=== PATIENT | female | born 1960 | race Caucasian/White ===

== ENCOUNTER → 2018-10-17 08:39 | Outpatient (CLI) | payer OTHER, SELFPAY ==
--- NOTE | 2018-10-17 08:51 | NVE_ITS ---
Venous Exam Indications: 729.81 Swelling of limb. IMPRESSIONS 1. There is no evidence of significant Reflux. 2. No evidence of deep or superficial vein thrombosis involving the right lower extremity Right lower extremity venous duplex evaluation. Doppler flow study including spectral analysis, color and ho scale imaging. Location: Vascular laboratory. Patient status: Outpatient. Tables: Venous flow and imaging: + +-------+ + Location Overall Flow properties + +-------+ + Right common femoral Patent Normal phasicity; spontaneous; normal augmentation; compressible + +-------+ + Right saphenofemoral junction Patent Compressible + +-------+ + Right profunda femoral Patent Compressible + +-------+ + Right femoral Patent Normal phasicity; spontaneous; normal augmentation; compressible + +-------+ + Right greater saphenous Patent Normal phasicity; spontaneous; normal augmentation; compressible + +-------+ + Right popliteal Patent Normal phasicity; spontaneous; normal augmentation; compressible + +-------+ + Right posterior tibial Patent Compressible + +-------+ + Right peroneal Patent Compressible + +-------+ + Right gastrocnemius Patent Compressible + +-------+ + Right soleal Patent Compressible + +-------+ + (Report amended ) Electronically signed by: Kristopher Taveras [id number]
== END ==
PROVIDERS: PCP Family Medicine; Visit Provider Family Medicine
DX: R60.0 Localized edema (principal); M79.605 Pain in left leg
CPT/HCPCS: 93971

== ENCOUNTER → 2019-08-07 16:56 | Outpatient (CLI) | payer OTHER, SELFPAY ==
--- NOTE | 2019-08-07 17:00 | MM_ITS ---
PROCEDURE: MM DIG SCREENING MAMM BI W/CAD CLINICAL INDICATION: SCREENING There is a history of breast cancer patient's maternal aunt. COMPARISON: DIGMAMMS MAMMOGRAM SCREEN-CONCRETE BUCKET HOOKER N/C from 06/20/2004 DIGMAMMS MAMMOGRAM SCREEN-CONCRETE BUCKET HOOKER N/C from 05/27/2007 TECHNIQUE: Standard CC and MLO images and 3D Tomosynthesis was obtained. R2 CAD reviewed. FINDINGS: Moderate diffuse fibroglandular densities are seen in both breast primarily upper outer quadrants. There are scattered benign-appearing micro and macrocalcifications in each breast. There is a mole marker right breast. The patient complains of a lump near the nipple left breast and a marker was placed at this site. There may be some minimal ductal hyperplasia deep to the skin marker but this is stable unchanged from previous exams. There is no new or suspicious lesion in either breast and no suspicious microcalcifications. There are several small nodes in both axilla. Collin images were reviewed IMPRESSION: Mild to moderate breast density with no suspicious lesions seen BI-RAD Category: 2 Benign Finding(s) FOLLOW-UP: 1YR 1 Year Follow-up (A letter has been sent to the patient regarding results of the study.) Dictated by: Dr. Carlos Acuña MD 08/09/2019 13:[address] Carlos Acuña MD in [place] 08/09/2019 13:55
== END ==
PROVIDERS: PCP Family Medicine; Visit Provider Family Medicine
DX: Z12.31 Encounter for screening mammogram for malignant neoplasm of breast (principal)
CPT/HCPCS: 77063; 77067

== ENCOUNTER → 2020-03-08 09:29 | Outpatient (CLI) | payer OTHER, SELFPAY ==
--- NOTE | 2020-03-08 09:36 | US_ITS ---
PROCEDURE: US BREAST LT COMPLETE CLINICAL INDICATION: PLAPABLE LT BREAST NODULE Palpable nodule is reported to be in the subareolar region on the left. COMPARISON: MG DIGMAMMS MAMMOGRAM SCREEN-FAMILY MEMBER CARETAKER N/C from 05/27/2007 MG DMSB DIG MAMM-SCREEN JESSICA W/CAD from 12/17/2016 MG MM DIG SCREENING MAMM BI W/CAD from 08/07/2019 US US BREAST LT COMPLETE from 03/08/2020 TECHNIQUE: Standard CC and MLO images and 3D Tomosynthesis was obtained. R2 CAD reviewed. Left breast ultrasound complete with axilla FINDINGS: There is average fibroglandular tissue. No malignant appearing mass or malignant-appearing microcalcification is evident. There may be some increased density in the retroareolar region. On the spot compression MLO view there is an area of decreased density centrally within the glandular tissue and may correspond to a fatty area noted on the ultrasound. Left breast ultrasound: There is a 4 mm cyst at 1 o'clock. In the retroareolar region there is a complex area of increased echogenicity with a small peripheral cyst. The whole area measures approximately 8 x 5 mm with a small cyst measuring 3 mm. No other significant anomalies are evident. IMPRESSION: Palpable abnormality corresponds to an 8 x 5 mm area of increased echogenicity with a small peripheral cystic lesion. This is probably benign. Suggest 3 month sonographic follow-up. Fine-needle aspiration could be performed with ultrasound guidance if clinically desired and for patient's peace of mind.. BI-RAD Category: 3 Probably Benign Finding Short Term Follow-up FOLLOW-UP: 3M 3 Month Follow-up (A letter has been sent to the patient regarding results of the study.) Dictated by: Kristopher Taveras MD 03/21/2020 09:11 Kristopher Taveras MD in [place] 03/21/2020 09:11
--- NOTE | 2020-03-08 11:15 | MM_ITS ---
PROCEDURE: MM DIG MAMM DX UNILAT LT CAD Digital Breast Tomosynthesis Included CLINICAL INDICATION: PLAPABLE LT BREAST NODULE Palpable nodule is reported to be in the subareolar region on the left. COMPARISON: MG DIGMAMMS MAMMOGRAM SCREEN-DRILL SETUP OPERATOR N/C from 05/27/2007 MG DMSB DIG MAMM-SCREEN JESSICA W/CAD from 12/17/2016 MG MM DIG SCREENING MAMM BI W/CAD from 08/07/2019 US US BREAST LT COMPLETE from 03/08/2020 TECHNIQUE: Standard CC and MLO images and 3D Tomosynthesis was obtained. R2 CAD reviewed. Left breast ultrasound complete with axilla FINDINGS: There is average fibroglandular tissue. No malignant appearing mass or malignant-appearing microcalcification is evident. There may be some increased density in the retroareolar region. On the spot compression MLO view there is an area of decreased density centrally within the glandular tissue and may correspond to a fatty area noted on the ultrasound. Left breast ultrasound: There is a 4 mm cyst at 1 o'clock. In the retroareolar region there is a complex area of increased echogenicity with a small peripheral cyst. The whole area measures approximately 8 x 5 mm with a small cyst measuring 3 mm. No other significant anomalies are evident. IMPRESSION: Palpable abnormality corresponds to an 8 x 5 mm area of increased echogenicity with a small peripheral cystic lesion. This is probably benign. Suggest 3 month sonographic follow-up. Fine-needle aspiration could be performed with ultrasound guidance if clinically desired and for patient's peace of mind.. BI-RAD Category: 3 Probably Benign Finding Short Term Follow-up FOLLOW-UP: 3M 3 Month Follow-up (A letter has been sent to the patient regarding results of the study.) Dictated by: Kristopher Taveras MD 03/21/2020 09:09 Kristopher Taveras MD in [place] 03/21/2020 09:10
== END ==
PROVIDERS: PCP Family Medicine; Visit Provider Family Medicine
DX: N63.42 Unspecified lump in left breast, subareolar (principal)
CPT/HCPCS: 76641; 77061; 77065; G0279

== ENCOUNTER → 2020-04-12 09:37 | Outpatient (CLI) | payer OTHER, SELFPAY ==
--- NOTE | 2020-04-12 09:45 | US_ITS ---
PROCEDURE: US FNA BREAST CLINICAL INDICATION: BREAST LUMP COMPARISON: US US BREAST LT COMPLETE from 03/08/2020 MG MM DIG MAMM DX UNILAT LT CAD from 03/08/2020 FINDINGS: There was an 8 x 5 mm area of increased echogenicity with small peripheral hypoechoic area which was reported to represent the palpable abnormality on the prior ultrasound. There was intention upon doing an FNA of this area however, upon further inspection with the pre biopsy ultrasound there was noted to be an additional hypoechoic area in the subareolar region. This area measures approximately 2 x 0.8 cm and was very difficult to distinguish from the areola.. Contiguous with this area was a somewhat spiculated lesion along the inferior margin of the larger lesion. Both areas were biopsied. This did appear more suspicious sonographically and was the 1st lesion that was biopsied. Following obtaining informed consent and time-out procedure under aseptic conditions a 1 percent buffered lidocaine, FNA was performed of this suspicious area as well as core biopsies. The patient tolerated the procedure well without evidence of immediate complication. In addition, there regional area of concern was interrogated and appear to represent a cyst and was aspirated without complication. The cytology was atypical. Pathology: Invasive mammary carcinoma ER IL positive and HER2 Giovanny negative IMPRESSION: Status post ultrasound-guided FNA and core biopsy of retroareolar region showing invasive mammary carcinoma. Surgical consult recommended. Dictated by: Kristopher Taveras MD 04/18/2020 13:30 Kristopher Taveras MD in [place] 04/18/2020 13:30
== END ==
PROVIDERS: PCP Family Medicine; Visit Provider Family Medicine
DX: C50.012 Malignant neoplasm of nipple and areola, left female breast (principal); Z17.0 Estrogen receptor positive status [ER+]
CPT/HCPCS: 19083; 76942

== ENCOUNTER → 2020-08-23 10:55 | Outpatient (CLI) | payer OTHER, SELFPAY | DX: S21.001A Unspecified open wound of right breast, initial encounter (principal) | CPT/HCPCS: 87070; 87077; 87186; 87205 ==

== ENCOUNTER 2021-02-02 10:00 | Outpatient (RCR) | payer OTHER, SELFPAY | END 2021-02-02 10:05 | disposition home or self-care (01) | LOC: PT 10:00 | PROVIDERS: PCP Family Medicine | DX: C50.112 Malignant neoplasm of central portion of left female breast (principal) | CPT/HCPCS: 97010; 97110; 97112; 97140; 97163; 97164; 97760 ==

== ENCOUNTER 2021-02-05 15:02 | Emergency (ER) | payer OTHER, SELFPAY ==
[2021-02-05 15:25] VITALS: BP 118/63; PULSE 96; RESP 14; TEMP 36.5; O2SAT 96; BMI 33.8
--- NOTE | 2021-02-05 15:28 | HMH.EDUTC ---
[facility] [place] Impression: Contusion of right great toe with damage to nail, initial encounter, Unspecified open wound of right great toe with damage to nail, initial encounter, Need for Tdap vaccination Diabetes Qualifiers: Diabetes mellitus type: type 2 Diabetes mellitus intermediate designer insulin use: without intermediate designer use Diabetes mellitus complication status: with other specified complication Qualified Code(s): E11.69 - Type 2 diabetes mellitus with other specified complication Disposition: Home, Self-Care Condition on Discharge: Good Instructions: DI for Crush Injury, DI for Nail Avulsion Injury, DI for Nail Bed Injury Additional Instructions: Follow up with Dr. Morse (podiatry). I put in a referral but you will need to call her office and schedule an appointment. Take the medications and apply the topical medications as directed. Follow up with your primary care provider. Watch the site for signs of worsening infection, such as worsening swelling, drainage, redness. GO TO THE ER FOR ANY WORSENING SYMPTOMS OR CONCERNS Prescriptions: Mupirocin [Bactroban 2% Ointment 22gm tube] 1 applicatio TP TID 7 Days #1 tube Transmission Status: Received by [id number] cephALEXin [cephALEXin 500mg capsule] 500 mg PO Q6H 10 Days #40 cap Transmission Status: Received by [id number] Referrals: Lokesh Phelps MD [Primary Care Provider] - Lia Morse DPM [Staff Physician] - Time of Disposition: 16:21 Medical Decision Making - Medical Records Medical records reviewed: No: I reviewed the patient's medical records. - Mitchell Inquiry Pt receiving controlled substance: No Vital Signs: 02/05/21 15:25 02/05/21 16:34 Temperature 97.7 F 0 F L Temperature Source Temporal Artery Scan Pulse Rate 0 L Pulse Rate [Left] 96 H Respiratory Rate 14 0 L Blood Pressure 0/0 L Blood Pressure [Right Arm] 118/63 Blood Pressure Mean [Right Arm] 81 02 Sat by Pulse Oximetry 96 Orders (Tests/Meds): ED MEDICATIONS Discontinued Medications Generic Name Dose Route Start Last Admin Trade Name Freq PRN Reason Stop Dose Admin Ceftriaxone Sodium 1 gm 02/05/21 15:54 02/05/21 16:17 Ceftriaxone 1gm Vial IM 02/05/21 15:55 1 gm ONCE ONE Administration Lidocaine HCl 0 ml 02/05/21 15:54 02/05/21 16:18 Lidocaine 1% 5ml Pf Vial IM 02/05/21 15:55 2.5 ml ONCE ONE Administration Tetanus/Reduced Diphtheria/Acell Pertussis 0.5 ml 02/05/21 15:58 02/05/21 16:18 Tet/Diphth/Pert-Adult 0.5ml Syringe IM 02/05/21 15:59 0.5 ml .ONCE ONE Administration - Radiology Data #1 Image(s): Foot/Toes Image Reviewed: Yes I reviewed the patient's radiology image, Yes I have reviewed radiologist's interpretation Preliminary Findings: Normal/NAD, No Fracture Seen PROCEDURE INFORMATION: Exam: XR Right Foot Exam date and time: 02/05/2021 3:29 PM Age: 60 years old Clinical indication: Injury or trauma; Other: Struck right great toe on a door 3 days ago. ; Blunt trauma; Foot; Injury details: Right great toe struck on a door 3 days ago. ; Additional info: Foot pain, stubbed toe TECHNIQUE: Imaging protocol: XR Right foot. Views: 3 or more views. COMPARISON: US CA venous doppler LE RT 10/17/2018 9:12 AM FINDINGS: Bones/joints: No acute fracture or dislocation. Dorsal calcaneal spur. Mild spurring at the medial aspect of the 1st metatarsal head. Normal bone mineralization. Soft tissues: Normal. IMPRESSION: 1. No acute findings. 2. Mild degenerative changes. [facility] [place] - General Stated complaint: ao 02/02 injured R big toe Time Seen by Provider: 02/05/21 15:28 - History of Present Illness Provider Complaint: She states that 3 days ago she got her right great toe hung under a door as she was opening it. This resulted in her nail getting partially ripped off. She is a diabeti
[2021-02-05 16:34] VITALS: BP 0/0; PULSE 0; RESP 0; TEMP -17.7; TEMP 0
== END 2021-02-05 16:34 | disposition home or self-care (01) ==
PROVIDERS: Emergency Provider Nurse Practitioner Family; PCP Family Medicine
DX: S90.211A Contusion of right great toe with damage to nail, initial encounter (principal); Z23 Encounter for immunization; W23.1XXA Caught, crushed, jammed, or pinched between stationary objects, initial encounter; Y92.019 Unspecified place in single-family (private) house as the place of occurrence of the external cause; E11.69 Type 2 diabetes mellitus with other specified complication
CPT/HCPCS: 73630; 90715; 99202; G0463

== ENCOUNTER 2021-07-29 12:27 | Emergency (ER) | payer OTHER, SELFPAY ==
[2021-07-29 13:15] VITALS: BP 144/73; PULSE 108; RESP 19; TEMP 36.6; O2SAT 98; BMI 32.8
--- NOTE | 2021-07-29 13:47 | HMH.EDUTC ---
[facility] [place] Disposition Clinical Impression: Exposure to COVID-19 virus, Upper respiratory infection, viral Disposition: Home, Self-Care Condition on Discharge: Good Instructions: DI for Viral Upper Respiratory Infection -- Adult, How to Care for Someone with COVID-19 Additional Instructions: covid swab was sent to lab, call tomorrow for results. self isolate until test results are known to be negative No sign of a bacterial infection. Likely viral. Viruses can take 7-14 days to run their course. Nasal saline and bulb syringe or nose Radha to remove nasal drainage to help with nasal congestion. Hard to eat, drink, sleep with nasal congestion so important to keep this cleaned out. Monitor temp. Tylenol or Motrin as needed for pain or fever Encourage fluids, water, Gatorade, Powerade, Pedialyte if infant/toddler/child Warm salt water gargles Warm fluids Sore throat lozenges Sleep elevated Humidifier/vaporizer Follow-up immediately for new or worsening symptoms or no noticeable improvement over the next 48-72 hours. Referrals: Lokesh Phelps MD [Primary Care Provider] - Time of Disposition: 14:03 Medical Decision Making - Mitchell Inquiry Pt receiving controlled substance: No Vital Signs: 07/29/21 13:15 Temperature 97.9 F Temperature Source Oral Pulse Rate [Right Brachial] 108 H Respiratory Rate 19 Blood Pressure [Right Arm] 144/73 H Blood Pressure Mean [Right Arm] 96 Blood Pressure Source [Right Arm] Automatic Cuff Blood Pressure Position [Right Arm] Sitting 02 Sat by Pulse Oximetry 98 Oxygen Delivery Method Room Air - Lab Data Lab Results 07/29/21 13:36: Group A Strep Rapid Negative Orders (Tests/Meds): ORDERS Category Date Time Status Covid-19 Nasal PCR ([facility]) Routine Lab 07/29/21 13:19 Ordered Strep Screen Confirmation Stat Micro 07/29/21 13:36 Received [facility] [place] HPI - General Chief complaint: Urgent Treatment Center Stated complaint: covid exposed, sore thraot, cough, runny nose Time Seen by Provider: 07/29/21 13:47 Source of Information: Patient Limitations: No Limitations - History of Present Illness Provider Complaint: 61 yr old female presents for sore throat, cough, nasal drainage and ear fullness. states she has been exposed to covid and strep - Related Data Previous Rx's Medication Instructions Recorded Mupirocin [Bactroban 2% Ointment 1 applicatio TP TID 7 Days #1 tube 02/05/21 22gm tube] cephALEXin [cephALEXin 500mg 500 mg PO Q6H 10 Days #40 cap 02/05/21 capsule] Allergies Allergy/AdvReac Type Severity Reaction Status Date / Time No Known Allergies Allergy Verified 02/05/21 15:31 [facility] History - Hepatitis A Screen Attestation statement:: This patient has been screened for Hepatitis A risk factors. I have reviewed the patient's past medical history: Yes ROS Obtained: Yes Systems reviewed as appropriate & no additional complaints - Constitutional Constitutional: Reports system reviewed and no additional complaints, except as docu, Denies fatigue, Denies fever(s) - Eyes Eyes: Reports system reviewed and no additional complaints, except as docu, Denies blurry vision - ENT Ears, Nose, Mouth, and Throat: Reports system reviewed and no additional complaints, except as docu, Reports nasal congestion, Reports nasal discharge, Reports sore throat - Cardiovascular Cardiovascular: Reports system reviewed and no additional complaints, except as docu, Denies chest pain - Respiratory Respiratory: Reports system reviewed and no additional complaints, except as docu, Denies chest congestion, Reports cough - Gastrointestinal Gastrointestingal: Reports: system reviewed and no additional complaints, except as docu. Denies: abdominal pain - Musculoskeletal Musculoskeletal: Reports system reviewed and no additional complaints, except as docu, Denies joint pain - Integumentary/Breasts Skin/Breast: Reports system reviewed and no additional complaint
[2021-07-29 14:02] LABS: Strep Scrn Group A (Rapid) Negative (Negative)
[2021-07-29 14:09] VITALS: BP 144/73; PULSE 108; RESP 19; TEMP 36.6; O2SAT 98
--- NOTE | 2021-07-30 09:14 | PC.NURSE ---
PATIENT NOTIFIED OF POSITIVE COVID TEST AT THIS TIME
== END 2021-07-29 14:12 | disposition home or self-care (01) ==
PROVIDERS: Emergency Provider Nurse Practitioner Family; PCP Family Medicine
DX: U07.1 COVID-19 (principal); J06.9 Acute upper respiratory infection, unspecified
CPT/HCPCS: 87430; 99203; C9803; G0463; U0003; U0005

== ENCOUNTER 2022-07-17 09:00 | Outpatient (RCR) | payer OTHER, SELFPAY ==
--- NOTE | 2022-04-24 08:53 | HMH.PTOPWND ---
Rehab Outpt Wound Evaluation Rehab OP Wound Evaluation Start: 04/24/22 08:47 Freq: Status: Active Protocol: Document 04/24/22 08:47 LEONA (Rec: 04/24/22 08:53 PHORNARA [id number]) E-signed By Efrain Pettit, PT Subjective/History History History This is the initial PT evaluation for Shawanda Pierce 62 yowf who presents with c/o B UE and axillary edema ~ 2 yrs S/P B mastectomy due to breast cancer. She reports L side is worse than R with increased feelings of tightness and numbness. She reports 12 LN removed from the L axilla during surgery. She has no c/o pain at this time. She reports PMH of HTN and DM- II. Subjective Subjective Pain currently 0/10. TTP 1/4 in L axilla and breast. Increased fibrotic ridging noted under L breast area and into L axilla. Lymphedema Eval Classification of Lymphedema Secondary Lymphedema Yes: B mastectomy Stemmer's sign Stemmer's Sign no Stage of Lymphedema Lymphedema stages Stage II (Pitting edema, increased fibrosis w/ decreased pitting) Skin Changes Dry Skin Yes Skin Folds Yes Other Changes Yes Radiation Therapy Has received radiation therapy yes Chemo Therapy Has received chemo therapy no Affected Extremities Areas Affected by Lymphedema/Edema Right Upper Extremity,Left Upper Extremity,Right Breast, Left Breast,Right Axilla,Left Axilla Manual Lymphatic Drainage Treatment Area MLD Treatment Area Right Upper Extremity,Left Upper Extremity,Right Breast, Left Breast,Right Axilla,Left Axilla Wound Problems/Impairments Impairments Problems/Impairmments Palpation Tenderness,Impaired Endurance,Impaired Recreational Activities, Increased Edema,Lymphedema Present,Impaired Self Care/ Self Management Prognosis Rehab Potential Good Clinical Impression Consistent with Diagnosis Yes Short Term Goals Num
--- NOTE | 2022-05-24 11:46 | HMH.RHREAS ---
Rehab Reassessment Rehab OP Re-assessment Start: 05/24/22 11:39 Freq: Status: Active Protocol: Document 05/24/22 11:41 LEONA (Rec: 05/24/22 11:45 LEONA [id number]) E-signed By Efrain Pettit, PT Rehab Re-assessment Subjective Subjective Pt reports she continues to feel increased edema in the L axilla. Especially when I put my arm at my side. Objective Objective Notes L UE with less spongy edema with palpation. L axilla remains mildly fibrotic with palpation, moderate ridging noted inferiorly. 0/4 TTP to L axilla this date. Assessment Progress Assessment Progressing as Expected Assessment Notes Pt has shown significant improvement in overall L UE edema, but continues to have problems in the L axillary area. Less tenderness to palpation is very encouraging at this time. Patient goals met ST,2,3 Goals Not Met LT,2,3,4,5 Revised Goals none Plan Plan Continue per initial POC Frequency of Therapy 2 x/wk Duration of therapy 4 wks Time and Billing Re-Eval Time 14 Re-Eval Billing Units 1 PHYSICIAN CERTIFICATION: I certify the specified therapy services for Shawanda Pierce are required, authorized, and reviewed every 30 days.
--- NOTE | 2022-06-28 12:40 | HMH.RHREAS ---
Rehab Reassessment Rehab OP Re-assessment Start: 05/24/22 11:39 Freq: Status: Active Protocol: Document 06/28/22 12:37 PHOKIM (Rec: 06/28/22 12:40 PHORNARA [id number]) E-signed By Efrain Pettit, PT Rehab Re-assessment Subjective Subjective Pt reports feeling much better overall, no c/o pain this date. Objective Objective Notes L UE with less spongy edema with palpation. L axilla remains mildly fibrotic with palpation, minimal ridging noted inferiorly, mild puffiness to the L sub-axillary space. 0/4 TTP to L axilla this date. Assessment Progress Assessment Progressing as Expected Assessment Notes Pt continues to show progression with edema reduction throughout L UE and L axilla. L flank with mild continued edema noted, but also progressing well. Continues to tolerate all MLD and compression without difficulty. Patient goals met ST,2,3 Goals Not Met LT,2,3,4,5 Revised Goals none Plan Plan Continue per initial POC Frequency of Therapy 2 x/wk Duration of therapy 4 wks Time and Billing Re-Eval Time 13 Re-Eval Billing Units 1 PHYSICIAN CERTIFICATION: I certify the specified therapy services for Shawanda Pierce are required, authorized, and reviewed every 30 days.
== END 2022-07-17 09:05 | disposition home or self-care (01) ==
LOC: PT 09:00
PROVIDERS: PCP Family Medicine; Visit Provider Family Medicine
DX: I89.0 Lymphedema, not elsewhere classified (principal)
CPT/HCPCS: 97140; 97162; 97164

== ENCOUNTER → 2022-11-27 11:55 | Outpatient (CLI) | payer OTHER, SELFPAY ==
--- NOTE | 2022-11-27 12:04 | XR_ITS ---
FINAL REPORT CLINICAL HISTORY: NECK PAIN FINDINGS: CERVICAL SPINE 5 views were obtained. Fusion of C5-C7. There is no acute fracture. There is no malalignment. The disc spaces are well maintained. IMPRESSION: Postoperative and minimal degenerative changes. Reviewed, Interpreted and Dictated by Michael Estrada MD Transcribed by Rene Bush Authenticated and [facility]
== END ==
PROVIDERS: PCP Family Medicine; Visit Provider Nurse Practitioner Family
DX: M54.2 Cervicalgia (principal)
CPT/HCPCS: 72050

== ENCOUNTER 2023-06-08 13:18 | Emergency (ER) | payer OTHER, SELFPAY ==
[2023-06-08 14:00] VITALS: BP 193/101; PULSE 95; RESP 20; TEMP 37.1; O2SAT 96; BMI 36.7
--- NOTE | 2023-06-08 14:05 | EXP.UTC ---
Discharge Plan Disposition Patient Disposition: Home, Self-Care Condition: Good Prescriptions Prescriptions: New amoxicillin [amoxicillin] 875 mg tablet 875 mg PO Q12H Qty: 20 0RF benzonatate [benzonatate] 100 mg capsule 100 mg PO TIDP PRN (Reason: Cough) Qty: 30 0RF methylprednisolone 4 mg Tablets,Dose Pack 4 mg PO DIRECTED Qty: 21 0RF guaifenesin [Mucinex] 600 mg tablet extended release 12hr 600 - 1,200 mg PO BIDP PRN (Reason: Congestion) Qty: 30 0RF No Action anastrozole 1 mg tablet 1 mg PO DAILY lisinopril 20 mg tablet 20 mg PO DAILY Patient Comments: TAKE 1 TABLET BY MOUTH ONCE DAILY FOR 90 DAYS metformin 850 mg tablet 850 mg PO DAILY Patient Comments: TAKE 1 TABLET BY MOUTH TWICE DAILY FOR 90 DAYS metolazone 5 mg tablet 5 mg PO DAILY Patient Comments: TAKE 1 TABLET BY MOUTH ONCE DAILY FOR 90 DAYS rosuvastatin 20 mg tablet 20 mg PO DAILY Patient Comments: TAKE 1 TABLET BY MOUTH ONCE DAILY AT BEDTIME FOR 90 DAYS hydrochlorothiazide 12.5 mg tablet 12.5 mg PO DAILY Patient Comments: TAKE 1 TABLET BY MOUTH ONCE DAILY Glyxambi 25-5 mg tablet 1 tab PO DAILY Referrals Follow up/Referrals: Lokesh Phelps MD [Primary Care Provider] - See instructions Activity Restrictions/Add. Instructions Additional Instructions/Restrictions: Drink plenty of fluids. Take tylenol or ibuprofen for pain or fever. Take the medications as directed. Follow up with your regular doctor. GO TO THE ER FOR ANY WORSENING SYMPTOMS Clinical Impressions Clinical Impression: Sinusitis Instructions Patient Instructions: Sinusitis, DI for Sinusitis Discharge ED Provider: Amol Cardoza [facility] [place] General Stated complaint: sinus congestion Time Seen by Provider: 06/08/23 14:04 History of Present Illness Provider Complaint: She states that for the past 2 weeks she has had worsening sinus congestion, sinus pressure, ear pressure, and a cough. Related Data Home Medications Medication Instructions Recorded Confirmed anastrozole 1 mg tablet 1 mg PO DAILY 06/08/23 06/08/23 empagliflozin 25 mg-linagliptin 5 1 tab PO DAILY 06/08/23 06/08/23 mg tablet (Glyxambi) hydrochlorothiazide 12.5 mg tablet 12.5 mg PO DAILY 06/08/23 06/08/23 lisinopril 20 mg tablet 20 mg PO DAILY 06/08/23 06/08/23 metformin 850 mg tablet 850 mg PO DAILY 06/08/23 06/08/23 metolazone 5 mg tablet 5 mg PO DAILY 06/08/23 06/08/23 rosuvastatin 20 mg tablet 20 mg PO DAILY 06/08/23 06/08/23 Previous Rx's Medication Instructions Recorded amoxicillin 875 mg tablet 875 mg PO Q12H #20 tabs 06/08/23 benzonatate 100 mg capsule 100 mg PO TIDP PRN Cough #30 caps 06/08/23 guaifenesin 600 mg tablet, 600 - 1,200 mg PO BIDP PRN 06/08/23 extended release 12 hr (Mucinex) Congestion #30 tabs methylprednisolone 4 mg tablets in 4 mg PO DIRECTED #21 tabs 06/08/23 a dose pack Allergies Allergy/AdvReac Type Severity Reaction Status Date / Time No Known Allergies Allergy Verified 02/05/21 15:31 [facility] Disclaimer: The information contained in this section may have been updated after the patient was seen, as this information can be updated by other users. Medical History (Updated 06/08/23 @ 14:22 by Amol Cardoza APRN) Cancer Diabetes mellitus, type 2 Hyperlipidemia Hypertension Surgical History (Updated 06/08/23 @ 14:09 by Jackie Schneider RN) History of mastectomy History of oral surgery Social History Smoking Status: Never smoker alcohol intake: never current occupational status: employed Travel in the last 8 weeks: None ROS Obtained: Yes All systems reviewed & no additional complaints except as documented Constitutional Constitutional: Reports poor appetite Eyes Eyes: Reports system reviewed and no additional complaints, except as documented ENT Ears, Nose, Mouth, and Throat: Reports as per HPI Cardiovascu
[2023-06-08 14:23] VITALS: BP 193/101; PULSE 95; RESP 20; TEMP 37.1; O2SAT 96
== END 2023-06-08 14:26 | disposition home or self-care (01) ==
PROVIDERS: Emergency Provider Nurse Practitioner Family; PCP Family Medicine
DX: J01.90 Acute sinusitis, unspecified (principal); H92.09 Otalgia, unspecified ear; R05.9 Cough, unspecified; R09.81 Nasal congestion; E11.9 Type 2 diabetes mellitus without complications; E78.5 Hyperlipidemia, unspecified; I10 Essential (primary) hypertension; Z79.84 Long term (current) use of oral hypoglycemic drugs
CPT/HCPCS: 99212; 99214; G0463

== ENCOUNTER 2024-03-11 16:32 | Emergency (ER) | payer OTHER, SELFPAY ==
[2024-03-11 17:26] VITALS: BP 179/80; PULSE 101; RESP 20; TEMP 36.9; O2SAT 97; BMI 33.3
--- NOTE | 2024-03-11 17:34 | ED_ITS ---
Discharge Plan Disposition Patient Disposition: Home, Self-Care Condition: Good Prescriptions Prescriptions: New benzonatate 100 mg capsule 100 mg PO TID PRN (Reason: cough) Qty: 30 0RF No Action anastrozole 1 mg tablet 1 mg PO DAILY lisinopril 20 mg tablet 20 mg PO DAILY Patient Comments: TAKE 1 TABLET BY MOUTH ONCE DAILY FOR 90 DAYS metformin 850 mg tablet 850 mg PO DAILY Patient Comments: TAKE 1 TABLET BY MOUTH TWICE DAILY FOR 90 DAYS metolazone 5 mg tablet 5 mg PO DAILY Patient Comments: TAKE 1 TABLET BY MOUTH ONCE DAILY FOR 90 DAYS rosuvastatin 20 mg tablet 20 mg PO DAILY Patient Comments: TAKE 1 TABLET BY MOUTH ONCE DAILY AT BEDTIME FOR 90 DAYS hydrochlorothiazide 12.5 mg tablet 12.5 mg PO DAILY Patient Comments: TAKE 1 TABLET BY MOUTH ONCE DAILY Glyxambi 25-5 mg tablet 1 tab PO DAILY amoxicillin [amoxicillin] 875 mg tablet 875 mg PO Q12H Qty: 20 0RF benzonatate [benzonatate] 100 mg capsule 100 mg PO TIDP PRN (Reason: Cough) Qty: 30 0RF methylprednisolone 4 mg Tablets,Dose Pack 4 mg PO DIRECTED Qty: 21 0RF guaifenesin [Mucinex] 600 mg tablet extended release 12hr 600 - 1,200 mg PO BIDP PRN (Reason: Congestion) Qty: 30 0RF Referrals Follow up/Referrals: Lokesh Phelps MD [Primary Care Provider] - See instructions Activity Restrictions/Add. Instructions Additional Instructions/Restrictions: *Monitor Temp, Over the counter Motrin or Tylenol as directed/as needed Tylenol every 4 hours and Motrin every 6 hours (as long as your family doctor has told you that you can take it) for fever or pain. and straight to ER if unable to lower temp less than 101.0 after medication given *Warm salt water gargles may help to soothe the throat *Throat Lozenges? *Warm fluids like tea with honey may help to soothe the throat? *Sleep elevated *Humidifier/Vaporizer *Flonase 2 sprays in each nostril daily but be aware that it may take 2-3 days before you notice improvement Follow up IMMEDIATELY for new or worsening symptoms or no Noticeable improvement over the next 48-72 hours. 911 for difficulty breathing or swallowing You were tested for today for COVID19 your test result should be back in the next 24 hours, you may check your results on the [facility] My Health Portal Clinical Impressions Clinical Impression: Viral upper respiratory tract infection with cough Instructions Patient Instructions: Cough, DI for Nasal Congestion Print Language Print Language: Trinidadian Discharge ED Provider: Leah Prajapati [facility] [place] HPI General Stated complaint: Congestion,sore throat,cough Mode of Arrival: Ambulatory Source of Information: Patient Time Seen by Provider: 03/11/24 17:35 Description of Symptoms (Recalled from Triage Doc. by RN): SINUS COGESTION, COUGH, SNEEZING HEENT Symptoms (Recalled from RN notes): No Resp Symptoms (Recalled from RN notes): Yes Skin Symptoms (Recalled from RN notes): No MS Symptoms (Recalled from RN notes): No Functional Status (Recalled from RN notes): WNL History of Present Illness Provider Complaint: Patient states that she was out of town last week at a confrence and several of the people have COVID now States she started with sinus congestion and pressure last week and it has continued and now having burning and pressure in her sinuses not sure if she may have a sinus infection or COVID wanted to get checked and tested Related Data Home Medications ?Medication ?Instructions ?Recorded ?Confirmed anastrozole 1 mg tablet 1 mg PO DAILY 06/08/23 06/08/23 empagliflozin 25 mg-linagliptin 5 1 tab PO DAILY 06/08/23 06/08/23 mg tablet (Glyxambi) hydrochlorothiazide 12.5 mg tablet 12.5 mg PO DAILY 06/08/23 06/08/23 lisinopril 20 mg tablet 20 mg PO DAILY 06/08/23 06/08/23 metformin 850 mg tablet 850 mg PO DAILY 06/08/23 06/08/23 metolazone 5 mg tablet 5 mg PO DAILY 06/08/23 06/08/23 rosuvastatin 20 mg tablet 20 mg PO DAILY 06/08/23 06/08/23 Previous Rx's ?Medication ?Instructions ?Recorded amoxicillin 875 mg tablet 875 mg PO Q12H #20 tabs 06/08/23 benzonatate 100 mg capsule 100 mg PO TIDP PRN Cough #30 caps 06/08/23 guaifenesin 600 mg tablet, 600 - 1,200 mg (1 - 2 x 600 mg) PO 06/08/23 extended release 12 hr (Mucinex) BIDP PRN Congestion #30 tabs methylprednisolone 4 mg tablets in 4 mg PO DIRECTED #21 tabs 06/08/23 a dose pack benzonatate 100 mg capsule 100 mg PO TID PRN cough #30 caps 03/11/24 Allergies Allergy/AdvReac Type Severity Reaction Status Date / Time No Known Allergies Allergy Verified 02/05/21 15:31 Worker's Comp Is this a Worker's Comp case?: [facility] Dis[facility]: The information contained in this section may have been updated after the patient was seen, as this information can be updated by other users. Medical History (Updated 03/11/24 @ 17:45 by Leah Prajapati APRN) Cancer Diabetes mellitus, type 2 Hyperlipidemia Hypertension Surgical History (Updated 06/08/23 @ 14:09 by Jackie Schneider RN) History of oral surgery History of mastectomy Social History (Updated 06/09/23 @ 10:06 by Amol Cardoza APRN) Smoking Status: Never smoker alcohol intake: never current occupational status: employed Travel in the last 8 weeks: None ROS Obtained: Yes All systems reviewed & no additional complaints except as documented and Yes Systems reviewed as appropriate & no additional complaints except as documented Constitutional Constitutional: Reports system reviewed and no additional complaints, except as documented, Reports as per HPI, Denies body ache, Denies chills, Denies fever(s) and Reports headache(s) ENT Ears, Nose, Mouth, and Throat: Reports system reviewed and no additional complaints, except as documented, Reports as per HPI, Reports headache(s), Reports nasal congestion, Reports sinus pain and Reports sinus pressure Cardiovascular Cardiovascular: Reports system reviewed and no additional complaints, except as documented and Reports as per HPI Respiratory Respiratory: Reports system reviewed and no additional complaints, except as documented, Reports as per HPI and Reports cough Gastrointestinal Gastrointestingal: Reports system reviewed and no additional complaints, except as documented and as per HPI Neurologic Neurologic: Reports headache(s) Physical Exam General General appearance: alert and in no apparent distress ENT ENT exam: Present mucous membranes moist Expanded ENT Exam Nose exam: Present sinus tenderness Throat exam: Present other (PND noted) Respiratory Respiratory exam: Present normal lung sounds bilaterally; Absent respiratory distress or wheezes Cardiovascular Cardiovascular exam: Present regular rate, normal rhythm and normal heart sounds Neurological Exam Neurological exam: Present alert, oriented X3 and normal gait Medical Decision Making Medical Records Screening: Per USPSTF and CDC recommendations, given the prevalence of disease in our region, it is our hospital?s policy to screen for HIV and viral Hepatitis for all patients aged 18 and over and those with ongoing risk factors. Mitchell Inquiry Pt receiving controlled substance: No Mitchell was queried for this patient: No Vital Signs: 03/11/24 17:26 Temperature 98.4 F Temperature Source Oral Pulse Rate [Left Brachial] 101 H Respiratory Rate 20 Blood Pressure [Left Arm] 179/80 H Blood Pressure Mean [Left Arm] 113 02 Sat by Pulse Oximetry 97 Orders (Tests/Meds): ORDERS Category Date Time Status Covid-19 Nasal PCR ([facility]) Routine Lab 03/11/24 17:29 Ordered
[2024-03-11 17:53] VITALS: BP 179/80; PULSE 101; RESP 20; TEMP 36.9
--- NOTE | 2024-03-12 16:03 | PC.NURSE ---
Pt called and I relayed her positive covid result to her.
== END 2024-03-11 17:54 | disposition home or self-care (01) ==
PROVIDERS: Emergency Provider Nurse Practitioner; PCP Family Medicine
DX: U07.1 COVID-19 (principal); R05.9 Cough, unspecified; J06.9 Acute upper respiratory infection, unspecified
CPT/HCPCS: 87635; 99212; 99214; G0463